=== PATIENT | female | born 1995 | race Caucasian/White ===

== ENCOUNTER 2021-10-03 06:50 | Inpatient (IN) | payer OTHER, MEDICAID, SELFPAY ==
[2021-10-03] VITALS (52 sets, daily range): BP systolic 102–149; BP diastolic 55–81; PULSE 74–127; TEMP 36.1–37.3; O2SAT 88–100; BMI 42.7
[2021-10-03] MEDS: Lactated Ringers 1,000 ML 50 ML IV (07:45)
[2021-10-03 07:55] LABS: Absolute Lymphocyte Count 1.36 X10^3/uL (0.83-4.51); Absolute Neutrophil Count 5.6 X10^3/uL (2.0-7.7); Basophil# 0.03 X10^3/uL; Basophil% 0.4 % (0-1); Eosinophil# 0.16 X10^3/uL; Eosinophils% 2.1 % (0-5); Hematocrit 37.2 % (37-47); Lymphocyte # 1.36 X10^3/ul (0.83-4.51); Lymphocyte % 17.6 % (19-41); Mean Corp Hgb Conc 32.3 g/dL (32-36); Mean Corpuscular Hgb 28.3 pg (27.0-32.0); Mean Corpuscular Volume 87.7 fL (81-99); Monocyte# 0.49 X10^3/uL; Monocyte% 6.4 % (0-10); NRBC Flagged by Analyzer 0 % (0-5); Neutrophil # 5.58 X10^3/uL (2.7-7.7); Neutrophil % 72.3 % (47-70); Platelet Count 194 K/mm3 (150-450); RBC Distribution Width CV 14.6 % (11.6-14.6); Red Blood Count 4.24 M/mm3 (4.2-5.4); White Blood Count 7.7 K/mm3 (4.4-11.0)
[2021-10-03] MEDS: 0.9% Normal Saline Single 100 ML IV.SOLN. INTRA-UTER (08:22)
[2021-10-03] MEDS: Oxytocin 30 units/NS 500 ml 30 UNITS/500 ML IV.SOLN IV (08:31)
--- NOTE | 2021-10-03 08:43 | HP.PCM.OB_ITS ---
HPI - General General Date of Admission: 10/03/21 HPI Narrative MIRA LAYEN, is a 25 F at 39.0 weeks gestation who presents for scheduled induction of labor for obesity. complicated by positive gonorrhea at 36 weeks, obesity, and abnormality in heart rhythm. Maternal Data Information Final ZARA: 10/10/21 Gestational age: 39.0 PFSH PFSH Medical History (Updated 10/03/21 @ 16:53 by Yolie Anne CNM) Anxiety and depression cardiac dysrhythmia Gestational diabetes Gonorrhea affecting Pneumonia depression Pre-eclampsia Home Medications albuterol 90 mcg/actuation aerosol inhaler 180 mcg inhalation Q4H PRN PRN breathing issues 10/03/21 [History Last Taken 09/24/21 2 puffs] aspirin 81 mg chewable tablet 81 mg PO DAILY hx. preeclampsia 10/03/21 [History Last Taken 10/02/21 10:00] prenat.vits,alex,kxo-drzd-vthpt 1 tab PO DAILY 10/03/21 [History Last Taken 10/03/21 06:00 1 tab] Allergy/AdvReac Type Severity Reaction Status Date / Time oxytocin [From Pitocin] AdvReac Other Verified 10/03/21 07:35 Surgical History [place] teeth removed Social History Smoking Status: Never smoker History Elective abortions Hx Para 1 Spontaneous abortions Hx # Term Pregnancies Ectopic pregnancies Hx # Pregnancies Multiple births # of living children ROS Eyes Eyes: Denies blurry vision, change in vision or spots in vision ENT HEENT: Denies dizziness or headache(s) Cardiovascular Cardiovascular: Denies abdominal pain, chest pain or dyspnea Respiratory/Chest Respiratory/Chest: Denies cough, dyspnea, shortness of breath at rest or shortness of breath with exertion Gastrointestinal Gastrointestinal: Denies abdominal pain, diarrhea or vomiting Genitourinary Genitourinary: Denies change in urinary stream, difficulty urinating or dysuria Musculoskeletal Musculoskeletal: Reports none Integumentary Integumentary: Denies rash Neurologic Neurologic: Denies dizziness, headache(s), memory loss or weakness Psychiatric Psychiatric: Reports none Vital Signs Vital Signs Vital Signs: 10/03/21 07:30 10/03/21 07:30 10/03/21 07:33 Temperature Temperature Source Pulse Rate 94 104 H Blood Pressure 123/76 H BP Systolic 123 BP Diastolic 76 Pulse Ox 10/03/21 07:33 10/03/21 08:00 10/03/21 07:59 Temperature 97.5 F L Temperature Source Temporal Pulse Rate Blood Pressure BP Systolic BP Diastolic Pulse Ox 98 10/03/21 07:59 10/03/21 09:01 10/03/21 09:01 Temperature 97.6 F L Temperature Source Pulse Rate 107 H Blood Pressure 121/81 H BP Systolic 121 BP Diastolic 81 Pulse Ox 10/03/21 09:01 10/03/21 09:01 10/03/21 09:01 Temperature 97.0 F L Temperature Source Temporal Pulse Rate Blood Pressure BP Systolic BP Diastolic Pulse Ox 97 10/03/21 11:25 10/03/21 11:25 10/03/21 11:25 Temperature 98.1 F Temperature Source Pulse Rate 82 Blood Pressure 125/69 H BP Systolic 125 BP Diastolic 69 Pulse Ox 10/03/21 11:25 10/03/21 11:25 10/03/21 11:25 Temperature Temperature Source Temporal Pulse Rate 90 Blood Pressure BP Systolic BP Diastolic Pulse Ox 97 10/03/21 12:39 10/03/21 12:39 10/03/21 12:39 Temperature Temperature Source Pulse Rate 74 Blood Pressure 121/63 H BP Systolic 121 BP Diastolic 63 Pulse Ox 98 10/03/21 12:40 10/03/21 12:40 10/03/21 13:43 Temperature 98.1 F Temperature Source Temporal Pulse Rate Blood Pressure 139/78 H BP Systolic 139 BP Diastolic 78 Pulse Ox 10/03/21 13:43 10/03/21 13:43 10/03/21 13:43 Temperature 97.9 F Temperature Source Temporal Pulse Rate 84 Blood Pressure BP Systolic BP Diastolic Pulse Ox 10/03/21 13:52 10/03/21 13:52 10/03/21 14:25 Temperature Temperature Source Pulse Rate 88 Blood Pressure 138/71 H BP Systolic 138 BP Diastolic 71 Pulse Ox 97 10/03/21 14:25 10/03/21 14:24 10/03/21 14:30 Temperature Temperature Source Pulse Rate 89 Blood Pressure 141/79 H BP Systolic 141 BP Diastolic 79 Pulse Ox 97 10/03/21 14:30 10/03/21 14:29 10/03/21 14:35 Temperature Temperature Source Pulse Rate 93 Blood Pressure 149/81 H BP Systolic 149 BP Diastolic 81 Pulse Ox 96 10/03/21 14:35 10/03/21 14:34 10/03/21 14:39 Temperature Temperature Source Pulse Rate 82 91 Blood Pressure BP Systolic BP Diastolic Pulse Ox 97 10/03/21 14:39 10/03/21 14:41 10/03/21 14:41 Temperature Temperature Source Pulse Rate 99 Blood Pressure 128/79 H BP Systolic 128 BP Diastolic 79 Pulse Ox 98 10/03/21 14:44 10/03/21 14:44 10/03/21 14:46 Temperature Temperature Source Pulse Rate 95 Blood Pressure 127/68 H BP Systolic 127 BP Diastolic 68 Pulse Ox 96 10/03/21 14:46 10/03/21 14:50 10/03/21 14:50 Temperature Temperature Source Pulse Rate 82 88 Blood Pressure 126/66 H BP Systolic 126 BP Diastolic 66 Pulse Ox 10/03/21 14:49 10/03/21 14:55 10/03/21 14:55 Temperature Temperature Source Pulse Rate 88 Blood Pressure 133/68 H BP Systolic 133 BP Diastolic 68 Pulse Ox 95 10/03/21 14:54 10/03/21 14:56 10/03/21 14:56 Temperature 98.4 F Temperature Source Temporal Pulse Rate Blood Pressure BP Systolic BP Diastolic Pulse Ox 97 10/03/21 14:59 10/03/21 14:59 10/03/21 15:00 Temperature Temperature Source Pulse Rate 88 Blood Pressure 135/72 H BP Systolic 135 BP Diastolic 72 Pulse Ox 97 10/03/21 15:00 10/03/21 15:05 10/03/21 15:05 Temperature Temperature Source Pulse Rate 78 93 Blood Pressure 127/67 H BP Systolic 127 BP Diastolic 67 Pulse Ox 10/03/21 15:04 10/03/21 16:28 10/03/21 16:28 Temperature Temperature Source Pulse Rate 78 Blood Pressure 102/55 L BP Systolic 102 BP Diastolic 55 Pulse Ox 95 10/03/21 16:29 10/03/21 16:30 10/03/21 16:30 Temperature Temperature Source Temporal Pulse Rate 80 Blood Pressure BP Systolic BP Diastolic Pulse Ox 94 10/03/21 16:29 Temperature 97.7 F L Temperature Source Pulse Rate Blood Pressure BP Systolic BP Diastolic Pulse Ox Weight Weight: 241 lb 2.971 oz Body Mass Index (BMI) 42.7 Physical Exam Const alert, oriented x3 and no apparent distress General Appearance: cooperative Orientation / Consciousness: awake Exam Limitations: no limitations HEENT normocephalic Head and Scalp: normal to inspection Eyes General Eye: normal appearance of both eyes Neck full ROM and no lymphadenopathy Lymph Lymphatic: no lymphadenopathy noted Chest inspection of chest normal Resp normal respiratory effort, normal air movement and clear to auscultation bilaterally Effort and Inspection: able to speak in complete sentences and symmetric chest movement Cardio regular rate and regular rhythm GI normal to inspection, nondistended, normoactive bowel sounds Manual OB Exam: presentation cephalic, dilated 2, effaced 60 and station - 2 Back/Spine normal ROM Extremity full ROM and no calf tenderness Skin no rashes or lesions noted General Skin Exam: no breakdown Neuro oriented x3 and CN's II-XII intact bilaterally Psych mental status grossly normal and thought process normal Labs Labs Labs: Blood Type A POSITIVE Antibody Screen NEGATIVE Hct 37.2 % (37-47) Hgb 12.0 g/dL (12.0-15.0) Rubella - non immune HB- neg HC- neg RPR- NR HIV- NR GBS- negative GC/Ch- negative 09/11/21 Assessment & Plan (1) Encounter for induction of labor: (2) Obesity affecting : (3) 39 weeks gestation of : (4) cardiac dysrhythmia: COMMENT: 3rd preg. 2021 - echo done (5) Rubella non-immune status, antepartum: PLAN: Plan Admit to labor and delivery Routine labs Start IV and run fluids per orders Granados bulb placed without difficulty AROM clear fluid during placement of granados bulb Start Pitocin IV at 2 mu/min and increase per orders Television Schedule Coordinator notified of arrhythmia Epidural when indicated Dr. Youssef notified of admission and is collaborating physician
[2021-10-03] MEDS: LACTATED RINGERS 500 ML 999 ML IV ×2 (13:46→16:34)
[2021-10-03] MEDS: fentaNYL-bupivacaine (epidural) 100 ML BAG EPIDURAL ×2 (14:49→19:21)
[2021-10-03] MEDS: 0.9% Saline Lock 10 ML Syringe IV ×2 (16:22→20:31)
--- NOTE | 2021-10-03 16:37 | PN.OBGYN_ITS ---
Subjective Subjective Patient seen at bedside. Resting comfortably with epidural anesthesia. Objective Data Objective Data Vital Signs: Vital Signs Temp Pulse BP Pulse Ox 97.7 F L 80 102/55 L 94 10/03/21 16:29 10/03/21 16:30 10/03/21 16:28 10/03/21 16:30 Weight: 241 lb 2.971 oz Body Mass Index (BMI) 42.7 Intake & Output: Intake and Output for Last 24 Hours 10/01/21 10/02/21 10/03/21 23:59 23:59 23:59 Intake Total 960.63 / 960.63 Output Total 100 / 100 Balance 860.63 / 860.63 Lab / Micro Data Result Diagrams: 10/03/21 07:45 Labs: Laboratory Results - last 24 hr 10/03/21 07:45: WBC 7.7, RBC 4.24, Hgb 12.0, Hct 37.2, MCV 87.7, MCH 28.3, MCHC 32.3, RDW Std Deviation 47.0 H, RDW Coeff of [place] 14.6, Plt Count 194, MPV 13.0 H , Immature Gran % (Auto) 1.200 H, Neut % (Auto) 72.3 H, Lymph % (Auto) 17.6 L, [place] % (Auto) 6.4, Eos % (Auto) 2.1, Baso % (Auto) 0.4, Absolute Neuts (auto) 5.6, Absolute Lymphs (auto) 1.36, Nucleated RBC % 0 10/03/21 07:45: Blood Type A POSITIVE, Antibody Screen NEGATIVE Micro: Microbiology 10/03/21 07:35 Nasal Secretion SARS-CoV-2 Antigen (Rapid) - Final ROS Eyes Eyes: Denies blurry vision Cardiovascular Cardiovascular: Reports none; Denies chest pain at rest, chest pain with activity or dizziness Respiratory/Chest Respiratory/Chest: Denies cough or dyspnea Gastrointestinal Gastrointestinal: Reports none and other; Denies diarrhea or vomiting Genitourinary Genitourinary: Denies dysuria Musculoskeletal Musculoskeletal: Reports none Integumentary Integumentary: Reports none; Denies rash Neurologic Neurologic: Denies dizziness, headache(s) or other visual disturbances Psychiatric Psychiatric: Reports none Physical Exam Const alert and no apparent distress General Appearance: cooperative Orientation / Consciousness: awake Exam Limitations: no limitations HEENT normocephalic Eyes General Eye: normal appearance of both eyes Neck full ROM Chest inspection of chest normal Resp normal respiratory effort and normal air movement Effort and Inspection: symmetric chest movement Auscultation: clear to auscultation bilaterally Cardio regular rate GI soft to palpation, non-tender and non-distended Inspection: and other Back/Spine normal ROM Extremity full ROM, normal capillary refill and no calf tenderness Skin no rashes or lesions noted Neuro oriented x3 and CN's II-XII intact bilaterally Psych mental status grossly normal NST FHR Rate Baby A Baseline: 135 Variability:: Moderate Accelerations:: 15 x 15 Decelerations:: None NST Reactive:: Yes FHR Category:: Category I Uterine Activity:: 2-3 minutes Assessment & Plan (1) 39 weeks gestation of : (2) Obesity affecting : (3) Gonorrhea affecting : COMMENT: treated at 36 weeks gestation- WYATT negative (4) Encounter for induction of labor: PLAN: Plan CE- 4/70/-2 Continue Pitocin IV and titrate per orders Anticipate
[2021-10-03] MEDS: Lactated Ringers 1,000 ML 200 ML IV (17:52)
[2021-10-03] MEDS: Oxytocin 30 units/NS 500 ml 30 UNITS/500 ML IV.SOLN 334 UNITS IV (23:04)
--- NOTE | 2021-10-03 23:22 | EX.PCM.OBRPT ---
Assessment & Plan (1) Rubella non-immune status, antepartum: (2) (spontaneous vaginal delivery): (3) Laceration, obstetrical, first degree: Vaginal Delivery Maternal Presentation Maternal Presentation: Medically Indicated Induction Maternal Presentation: at 39.0 weeks gestation for induction of labor for BMI >40. Type of Induction: Pitocin, Ramos Bulb and Amniotomy Operative Information Date of Procedure: 10/03/21 Pre-Operative Diagnosis: Term gestation, induction of labor Post-Operative Diagnosis: , Live female infant Surgery / Procedure Performed: Spontaneous Vaginal Delivery Type of Anesthesia: Epidural Drain: Ramos to straight drain Estimated Blood Loss: 200 Time of Delivery: 22:59 Findings Description of Procedure: Patient feeling pressure while in hands and knees. Complete dilation and +1 station. Medical Records Administrator, Respiratory, and Nursery RN to room for delivery. Repositioned to lithotomy and with minimal maternal effort, head delivered with single push followed by remainder of body. Vigorous female placed on maternal abdomen and assessed by nursing. IV Pitocin started for active management of the third stage of labor. Patient had large emesis and placenta delivered intact on bed. 3 vessel cord clamped and cut by mother's friend (support person) and infant placed immediately skin to skin with patient. After inspection, first degree vaginal laceration noted and repaired in usual fashion with 3-0 Vicryl. Hemostasis obtained. EBL 200 cc. APGARS 8/9. Infant and patient bonding well at this time. Dr. Youssef notified of delivery. Presentation: Vertex Amniotic Membrane Rupture Type: Artificial Time of Membrane Rupture: 0820 Amniotic Fluid Description: Clear Placental Delivery Description: Spontaneous Placenta Disposition: [facility] Cord Vessel Description: 3 Vessels Cord Entanglement: None Infant A Gender: Female (1 minute): 8 (5 minute): 9 Delayed Cord Clamping: Yes Post Vaginal Delivery Medications Given After Delivery: IV Pitocin Episiotomy Description: None Laceration: 1st degree Complication Complications: None
[2021-10-04] VITALS (26 sets, daily range): BP systolic 112–149; BP diastolic 56–75; PULSE 80–956; RESP 16–18; TEMP 35.9–36.9; O2SAT 94–99
--- NOTE | 2021-10-04 00:43 | NURSING ---
PT was resting in bed skin to skin with infant. FOB called via [employer]. started crying. fob stated oh you dont like your momma? I dont like that bitch either pt told fob to call me back later since your being like that and hung up phone.
[2021-10-04] MEDS: 0.9% Saline Lock 10 ML Syringe IV (01:43)
[2021-10-04] MEDS: Acetaminophen 500 MG Tablet 1000 MG PO ×3 (05:21→20:37)
[2021-10-04] MEDS: Naproxen 500 MG Tablet PO ×2 (06:02→17:03)
--- NOTE | 2021-10-04 09:51 | PCM.PN.OB ---
Subjective Subjective Pain well controlled, average lochia. no N/V Objective Data Objective Data Vital Signs: Vital Signs Temp Pulse Resp BP Pulse Ox O2 Del Method 97.8 F 956 H 16 112/66 96 Room Air 10/04/21 08:50 10/04/21 08:50 10/04/21 08:50 10/04/21 08:50 10/04/21 03:29 10/04/21 03:29 Oxygen Delivery Method Room Air Weight: 109.4 kg Body Mass Index (BMI) 42.7 Intake & Output: Intake and Output for Last 24 Hours 10/02/21 10/03/21 10/04/21 23:59 23:59 23:59 Intake Total 4360.70 / 4360.70 333 / 333 Output Total 1800 / 1800 900 / 900 Balance 2560.70 / 2560.70 -567 / -567 Lab / Micro Data Result Diagrams: 10/03/21 07:45 Micro: Microbiology 10/03/21 07:35 Nasal Secretion SARS-CoV-2 Antigen (Rapid) - Final Assessment & Plan (1) Laceration, obstetrical, first degree: (2) (spontaneous vaginal delivery): PLAN: PPD#1 doing well routine care likely home tomorrow
--- NOTE | 2021-10-04 11:44 | CASEMGMT ---
Social Work Assessment SW spoke with RN. RN states pt has some social problems, states MOB is doing ok. RN states no additional concerns. MOB: Chrissy G/P: 05/22 PNC: Pt states that she received PNC through [facility]. Control: Pt states that she plans on making an appointment to see about getting on the pill. *MOB states that she has moved in with her father and that address is [address] [place] [address]. Baby: Baby Girl : 10/03/2022 Apgars: 8/9 Weight: 3390G Rail Assembler: Dr. Giles Negron [place]. MOB states she plans on feeding combination. MOB's Other Children: MOB reports that she has one other child, a 6 year old named Jose Angel Abreu. Housing: MOB states that she has appropriate housing and has no concerns with her house. As noted above, pt states that she moved in with her Dad. Transportation: MOB states she has access to transportation, states she has no concerns. Supplies: MOB reports that she has all needed supplies for . Supports: MOB reports that her Dad and her friend Shamika will be good support for her. MOB reports that her guest currently in room in her room is her friend Shamika. MOB gave permission in the beginning of the assessment for this worker to speak to her in front of her guest. Shamika currently sleeping during assessment. Education Level: MOB reports that she graduated high school. MOB reports no college or tech school. Employment/Financial: MOB reports that she just started a new job two weeks ago at [employer] in [place]. MOB states that she will be taking three months off and then will be returning to work. Agency Involvement: MOB reports to have [employer] insurance. MOB reports that she signed up for WIC this week. MOB is involved with [facility] due to having [employer]/Medicaid insurance. MOB reports no legal concerns and no history or current CPS involvement. MOB reports no history of HMG involvement and denied needing a HMG referral at this time. MOB Mental Health History: MOB reports history of Anxiety and Depression. MOB reports not currently using any medication. MOB states she used to be involved in counseling but not currently linked up with any counseling. 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 JAKOB educated pt on PPD and Symptoms and encouraged MOB to reach out to her OBGYN or family doctor if she gets PPD again. Pt states understanding. Pt denied any current suicidal or homicidal thoughts. MOB AOD History: MOB reports no history of AOD use and states no use during . FOB: Per chart, pt refuses to give name. Time Together: MOB reports that she and FOB are not in a relationship. Employment: MOB reports that FOB does have a job. Other Children: MOB states none that she knows of. FOB Mental Health/AOD/Domestic Violence History: MOB reports no Domestic Violence concerns. MOB states that FOB will not be involved with . MOB states that she is ok with FOB not being involved. MOB states no Mental Health or AOD concerns with FOB. SW spoke with MOB about reaching out for help if she needs it. SW offered support to MOB. SW educated pt on Shaken Baby, PPD, and Safe Sleeping. Pt states understanding. Resource packet provided to MOB. MOB appropriate during conversation with this worker. MOB breast feeding and then holding baby during conversation. MOB with appropriate affect and eye contact during conversation. MOB reports to being ok with FOB not being involved with . MOB currently living with her Dad and identifies her Dad and her friend Shamika has good support. MOB denied the need for additional information or resources to this worker. SW updated RN on conversation. Plan: Home with support from pt's identified support person (Dad and friend Shamika.) Elina Pichardo AERIAL PHOTOGRAPH INTERPRETER, SECURITY TECHNICIAN
[2021-10-05 02:44] VITALS: BP 109/63; PULSE 89; RESP 18
[2021-10-05 08:00] VITALS: BP 120/71; PULSE 88; RESP 18; TEMP 36.3
--- NOTE | 2021-10-05 08:22 | PCM.PN.OB ---
Subjective Subjective Patient seen at bedside. Feeling good. Denies any pain. Ambulating and voiding without difficulty. Breast and bottle feeding. Desires discharge home today. Objective Data Objective Data Vital Signs: Vital Signs Temp Pulse Resp BP Pulse Ox O2 Del Method 97 F L 89 18 109/63 96 Room Air 10/04/21 20:39 10/05/21 02:44 10/05/21 02:44 10/05/21 02:44 10/04/21 03:29 10/05/21 02:44 Oxygen Delivery Method Room Air Weight: 241 lb 2.971 oz Body Mass Index (BMI) 42.7 Intake & Output: Intake and Output for Last 24 Hours 10/03/21 10/04/21 10/05/21 23:59 23:59 23:59 Intake Total 4360.70 / 4360.70 333 / 333 Output Total 1800 / 1800 900 / 900 Balance 2560.70 / 2560.70 -567 / -567 Lab / Micro Data Result Diagrams: 10/03/21 07:45 Micro: Microbiology 10/03/21 07:35 Nasal Secretion SARS-CoV-2 Antigen (Rapid) - Final ROS Eyes Eyes: Denies blurry vision, change in vision or spots in vision ENT HEENT: Denies dizziness or headache(s) Cardiovascular Cardiovascular: Denies abdominal pain, chest pain or dyspnea Respiratory/Chest Respiratory/Chest: Denies cough, dyspnea, shortness of breath at rest or shortness of breath with exertion Gastrointestinal Gastrointestinal: Denies abdominal pain, diarrhea or vomiting Genitourinary Genitourinary: Denies change in urinary stream, difficulty urinating or dysuria Musculoskeletal Musculoskeletal: Reports none Integumentary Integumentary: Denies rash Neurologic Neurologic: Denies dizziness, headache(s), memory loss or weakness Physical Exam Const alert and no apparent distress General Appearance: cooperative and comfortable Exam Limitations: no limitations HEENT normocephalic Eyes General Eye: normal appearance of both eyes Neck full ROM General: normal visual inspection Chest Chest: symmetrical chest wall rise Resp normal respiratory effort and normal air movement Effort and Inspection: symmetric chest movement Auscultation: clear to auscultation bilaterally Cardio regular rate and regular rhythm GI normal to inspection, nondistended, normoactive bowel sounds Back/Spine normal ROM Extremity full ROM and no calf tenderness General Extremity: normal exam except as noted Skin no rashes or lesions noted Neuro CN's II-XII intact bilaterally Psych mental status grossly normal Assessment & Plan (1) Laceration, obstetrical, first degree: (2) (spontaneous vaginal delivery): PLAN: Plan PPD 1 Routine care support Discharge home with follow up in office
--- NOTE | 2021-10-05 08:31 | DCINST_ITS ---
Discharge Instructions Diet Discharge Diet: No restrictions Activity Discharge Activity: Return to Normal Activity May resume sexual activity in: 6-8 weeks Weight Bearing Status: Weight bearing as tolerated Follow Up Care Please Follow Up With: Yolie Anne CNM When: 2 weeks/6 weeks in office Test Results: Test results from this visit will be discussed in further detail at your follow- up appointment, if applicable. Discharge Plan Admission Admit Date/Time: 10/03/21 06:50 Primary Reason for Your Visit: labor and delivery Attending Provider: Yolie Anne Discharge Orders/Prescriptions Prescriptions: Continued albuterol 90 mcg/actuation Aerosol 180 mcg INHALATION Q4H PRN PRN (Reason: breathing issues) prenat.vits,alex,[id number]-[id number] Tablet 1 tab PO DAILY Discontinued aspirin [Baby Aspirin] 81 mg Tablet,Chewable 81 mg PO DAILY Disposition Disposition (needs filled in before D/C Order can be placed): Home, Self Care
== END 2021-10-05 09:30 | disposition home or self-care (01) | DRG 560 ==
PROVIDERS: Obstetrics & Gynecology; Admitting Provider Advanced Practice Midwife; Visit Provider Advanced Practice Midwife
DX: O76 Abnormality in fetal heart rate and rhythm complicating labor and delivery (principal); Z37.0 Single live birth; O70.0 First degree perineal laceration during delivery; O99.214 Obesity complicating childbirth; Z3A.39 39 weeks gestation of pregnancy; Z79.82 Long term (current) use of aspirin; Z86.19 Personal history of other infectious and parasitic diseases; Z87.59 Personal history of other complications of pregnancy, childbirth and the puerperium
CPT/HCPCS: 59025; 59050; 85025; 86850; 86900; 86901; 87426; 99218; J7120; A4216; G0378